=== PATIENT | male | born 1985 | race Caucasian/White ===

== ENCOUNTER 2018-10-18 15:12 | Emergency (ER) | payer SELFPAY ==
[~2018-10-18] VITALS: Ht 165.1 cm; Wt 54.5 kg
[2018-10-18] MEDS ORDERED: HALOPERIDOL 5 MG INJ IM STA (15:19)
[2018-10-18] MEDS ORDERED: DIPHENHYDRAMINE 50 MG INJ IM ONE (15:30)
[2018-10-18] MEDS ORDERED: MIDAZOLAM 1 MG/ML 2 ML INJ IM ONE (15:30)
[2018-10-18 15:39] VITALS: Ht 165.1 cm; Wt 54.5 kg
--- NOTE | 2018-10-18 15:47 | ERD ---
ER Documentation Chief Complaint Chief Complaint BIB [employer] AND [employer] D/T EXTREME AGITATION AND PROBABLE DRUG USE HPI This is a 33-year-old male who presents brought in by [facility], for agitation in the setting of drug use, suspected to have been using methamphetamine. History was limited secondary the patient's ability to cooperate, he came in yelling and screaming. Denied chest pain. ROS All systems reviewed and are negative except as per history of present illness. Medications Home Meds Unable to Obtain Active Prescriptions or Reported Meds Allergies Allergies: Coded Allergies: No Known Allergy (Unverified , 10/18/18) Physical Exam Vitals Vital Signs Date Temp Pulse Resp B/P (MAP) Pulse Ox O2 O2 Flow FiO2 Time Delivery Rate 10/18/18 95 19 111/76 97 Room Air 19:27 (88) 10/18/18 99.5 133 24 123/86 100 15:39 (98) Physical Exam Const: Agitated, combative and restrained Head: Atraumatic Eyes: Normal Conjunctiva ENT: Normal External Ears, Nose and Mouth. Neck: Full range of motion. No meningismus. Resp: Clear to auscultation bilaterally Cardio: Tachycardic, regular rhythm, no murmurs Abd: Soft, non tender, non distended. Normal bowel sounds Skin: Warm and dry, no rashes Back: No midline or flank tenderness Ext: No cyanosis, or edema Neur: Awake and alert Psych: Patient presented screaming, yelling let me go, pulling at his restraints Result Diagram: 10/18/18 1549 10/18/18 1549 Results 24 hrs Laboratory Tests Test 10/18/18 15:49 10/18/18 15:55 White Blood Count 7.8 10^3/ul Red Blood Count 4.97 10^6/ul Hemoglobin 15.2 g/dl Hematocrit 44.5 % Mean Corpuscular Volume 89.5 fl Mean Corpuscular Hemoglobin 30.6 pg Mean Corpuscular Hemoglobin Concent 34.2 g/dl Red Cell Distribution Width 12.9 % Platelet Count 275 10^3/UL Mean Platelet Volume 10.2 fl Immature Granulocytes % 0.400 % Neutrophils % 55.7 % Lymphocytes % 30.9 % Monocytes % 9.1 % Eosinophils % 3.1 % Basophils % 0.8 % Nucleated Red Blood Cells % 0.0 /100WBC Immature Granulocytes # 0.030 10^3/ul Neutrophils # 4.3 10^3/ul Lymphocytes # 2.4 10^3/ul Monocytes # 0.7 10^3/ul Eosinophils # 0.2 10^3/ul Basophils # 0.1 10^3/ul Nucleated Red Blood Cells # 0.0 10^3/ul Sodium Level 144 mmol/L Potassium Level 3.6 mmol/L Chloride Level 104 mmol/L Carbon Dioxide Level 21 mmol/L Anion Gap 19 Blood Urea Nitrogen 21 mg/dl Creatinine 0.99 mg/dl Est Glomerular Filtrat Rate mL/min > 60 mL/min Glucose Level 94 mg/dl Calcium Level 9.9 mg/dl Total Bilirubin 0.7 mg/dl Direct Bilirubin 0.00 mg/dl Indirect Bilirubin 0.7 mg/dl Aspartate Amino Transf (AST/SGOT) 33 IU/L Alanine Aminotransferase (ALT/SGPT) 26 IU/L Alkaline Phosphatase 86 IU/L Total Protein 8.3 g/dl Albumin 5.2 g/dl Globulin 3.10 g/dl Albumin/Globulin Ratio 1.67 Salicylates Level < 1.0 mg/dl Acetaminophen Level < 10.0 ug/ml Ethyl Alcohol Level < 10.0 mg/dl Urine Color YELLOW Urine Clarity CLEAR Urine pH 6.0 Urine Specific [place] 1.026 Urine Ketones 1+ mg/dL Urine Nitrite NEGATIVE mg/dL Urine Bilirubin NEGATIVE mg/dL Urine Urobilinogen 1+ mg/dL Urine Leukocyte Esterase NEGATIVE Majo/ul Urine Hemoglobin NEGATIVE mg/dL Urine Glucose NEGATIVE mg/dL Urine Total Protein NEGATIVE mg/dl Urine Opiates Screen Negative Urine Barbiturates Negative Urine Amphetamines Screen POSITIVE Urine Benzodiazepines Screen Positive Urine Cocaine Screen Negative Urine Cannabinoids Negative Current Medications Medications Dose Sig/Patrice Start Time Status Last (Trade) Ordered Route PRN Stop Time Admin Dose Reason Admin Haloperidol 5 mg ONCE STAT 10/18/18 DC 10/18/18 (Haldol) IM 15:19 17:10 10/18/18 15:21 Midazolam 5 mg ONCE ONCE 10/18/18 DC 10/18/18 HCl IM 15:30 15:29 (Versed) 10/18/18 15:31 50 mg ONCE ONCE 10/18/18 DC 10/18/18 Diphenhydrami IM 15:30 17:10 ne HCl 10/18/18 15:31 (Benadryl) Procedures/MDM This is a 34-year-old male who presents for evaluation of agitation in the setting of drug use. Patient did not endorse any suicidal ideations, he required chemical sedation for his agitation, he was given Versed, Haldol and Benadryl. His EKG did not show any arrhythmias, I reviewed his lab work, which did not show any acute abnormalities, at this point I do not suspect an organic for his symptoms. He has no infectious etiology. EKG: Rate/Rhythm: Sinus tachycardia QRS, ST, T-waves: No changes consistent w/ acute ischemia Impression: No evidence of ischemia or arrhythmia Observation Note: Time: 4 hours Family Hx: [Negative] for diabetes Evaluation: Multiple exams showed improving symptoms and no evidence of clinical decompensation. He continues to be asleep secondary to station, will require reassessment, to evaluate ability to ambulate, signed out to oncoming doctor. Departure Diagnosis: Primary Impression: Agitation Additional Impression: Methamphetamine intoxication Condition: Stable SUKHDEEP SCHULTE MD Oct 18, 2018 15:47
[2018-10-19 06:05] VITALS: BP 103/70; PULSE 95; RESP 18
== END 2018-10-19 06:07 | disposition home or self-care (01) ==
LOC: E/R 15:12
DX: F15.129 Other stimulant abuse with intoxication, unspecified (principal); R40.2142 Coma scale, eyes open, spontaneous, at arrival to emergency department; R40.2242 Coma scale, best verbal response, confused conversation, at arrival to emergency department; R40.2362 Coma scale, best motor response, obeys commands, at arrival to emergency department; R00.0 Tachycardia, unspecified
CPT/HCPCS: 36415; 80053; 80307; 81003; 85025; 93005; 96372; 99284; J1200; J1630; J2250